=== PATIENT | female | born 1960 | race African-American/Black ===

== ENCOUNTER 2018-12-18 04:11 | Emergency (ER) | payer MEDICAID, OTHER ==
[~2018-12-18] VITALS: Ht 170.2 cm; Wt 84.0 kg
[2018-12-18] MEDS ORDERED: NA PHOS,M-B/NA PHOS,DI-BA ENEMA 118ML PR ONE (06:45)
[2018-12-18] MEDS ORDERED: ONDANSETRON 4MG ODT PO ONE (07:00)
[2018-12-18 08:04] VITALS: BP 124/64
== END 2018-12-18 08:39 | disposition home or self-care (01) ==
LOC: ER 04:11
DX: K59.00 Constipation, unspecified (principal); M54.30 Sciatica, unspecified side; E11.9 Type 2 diabetes mellitus without complications; F32.9 Major depressive disorder, single episode, unspecified; Z98.890 Other specified postprocedural states; Z90.89 Acquired absence of other organs; Z98.51 Tubal ligation status
CPT/HCPCS: 74018; 99283

== ENCOUNTER 2019-01-29 00:11 | Emergency (ER) | payer MEDICAID ==
[~2019-01-29] VITALS: Ht 160 cm; Wt 78.0 kg
[2019-01-29 04:38] LABS: BASOPHILS % 0.9 % (0.0-2.0); EOSINOPHILS % 1.8 % (0.0-5.0); HEMATOCRIT. 34.5 % (36.0-48.0); HEMOGLOBIN. 11.2 g/dL (12.0-16.0); LYMPHOCYTES % 46.4 % (20.0-50.0); MEAN CORPUSCULAR HEMOGLOBIN 27.2 pg (28.0-32.0); MEAN CORPUSCULAR VOLUME 84.1 fL (81.0-99.0); MEAN PLATELET VOLUME 8.3 fl (7.4-10.4); MONOCYTES % 7.5 % (2.0-8.0); NEUTROPHILS % 43.4 % (40.0-76.0); PLATELET 268 x1000/uL (130-400); RED CELL DISTRIBUTION WIDTH 14.8 % (11.6-14.6)
[2019-01-29 04:39] LABS: CHLORIDE 112 mEq/L (98-107)
[2019-01-29 04:41] LABS: ETHANOL BLOOD < 10 mg/dL
[2019-01-29 05:36] LABS: CLARITY URINE CLEAR (CLEAR); COLOR URINE YELLOW (YELLOW); KETONES URINE NEGATIVE (NEGATIVE); LEUKOCYTE ESTERASE URINE NEGATIVE (NEGATIVE); NITRITE URINE NEGATIVE (NEGATIVE); OCCULT BLOOD URINE NEGATIVE (NEGATIVE); PROTEIN URINE TRACE (NEGATIVE); SPECIFIC GRAVITY URINE 1.038 (1.005-1.030)
[2019-01-29 05:49] LABS: *AMPHETAMINES SCREEN URINE NEGATIVE (NEGATIVE); *BARBITURATES SCREEN URINE NEGATIVE (NEGATIVE); *BENZODIAZEPINES SCREEN URINE NEGATIVE (NEGATIVE); *COCAINE SCREEN URINE NEGATIVE (NEGATIVE); METHADONE URINE SCREEN NEGATIVE (NEGATIVE)
[2019-01-29 05:50] LABS: CANNABINOID URINE SCREEN NEGATIVE (NEGATIVE); OPIATES URINE SCREEN NEGATIVE (NEGATIVE); PHENCYCLIDINE URINE SCREEN NEGATIVE (NEGATIVE)
[2019-01-29] MEDS ORDERED: ARIPIPRAZOLE 5MG TABLET PO ONE (06:30)
[2019-01-29] MEDS ORDERED: ARIPIPRAZOLE 2MG TABLET PO ONE (07:15)
[2019-01-29 09:30] VITALS: BP 118/65
== END 2019-01-29 10:00 | disposition home or self-care (01) ==
LOC: ER 00:11
DX: F32.9 Major depressive disorder, single episode, unspecified (principal); M54.30 Sciatica, unspecified side; F17.210 Nicotine dependence, cigarettes, uncomplicated; Z59.0 Homelessness; Z98.890 Other specified postprocedural states; Z90.89 Acquired absence of other organs
CPT/HCPCS: 36415; 80053; 80305; 80320; 81003; 81025; 85025; 99283; Z7610; G0480